=== PATIENT | female | born 1965 | race Caucasian/White ===

== ENCOUNTER 2016-09-15 11:55 | Emergency (ER) | payer BC ==
[2016-09-15 13:06] VITALS: BP 115/86
[2016-09-15] MEDS ORDERED: Acetaminophen TAB* 325 MG PO ONE (13:43)
[2016-09-15] MEDS ORDERED: Ondansetron ODT TAB* 4 MG PO ONE (13:43)
[2016-09-15] MEDS ORDERED: Acetaminophen ADULT LIQ* 650 MG/20.3 ML UDC PO ONE (14:16)
[2016-09-15] MEDS ORDERED: Acetaminophen TAB* 325 MG ONE (14:19)
--- NOTE | 2016-09-15 14:39 | UC ---
Abdominal Pain Female HPI - HPI Summary HPI Summary: vomiting on/off for about 20 hours, no fever or diarrhea-works with developmentally disabled adults - History of Current Complaint Chief Complaint: UCGI Stated Complaint: VOMITING,ACHY Time Seen by Provider: 09/15/16 14:30 Hx Obtained From: Patient Hx Last Menstrual Period: Uterine Ablation 2006 ?: No Onset/Duration: Sudden Onset, Lasting Days - 1, Still Present Timing: Constant Severity Initially: Moderate Severity Currently: Moderate Pain Intensity: 6 Pain Scale Used: 0-10 Numeric Location: Diffuse Radiates: No Character: Cramping Aggravating Factor(s): Food Alleviating Factor(s): Nothing Associated Signs and Symptoms: Positive: Decreased Appetite, Nausea, Vomiting. Negative: Constipation, Urinary Symptoms, Vaginal Bleeding, Vaginal Discharge, Diarrhea Allergies/Adverse Reactions: Allergies Allergy/AdvReac Type Severity Reaction Status Date / Time No Known Allergies Allergy Verified 12/25/15 07:30 PMH/Surg Hx/FS Hx/Imm Hx Previously Healthy: Yes - Surgical History Surgical History: Yes Surgery Procedure, Year, and Place: Uterine Ablation, 2006, [place]; Right Ankle Fracture, 1995, [facility]; T&A, ~1968, [place] - Family History Known Family History: Positive: None Family History: no cardiovascular issues in family lineage - Social History Occupation: Employed Full-time Lives: With Family Alcohol Use: None Substance Use Type: None Smoking Status (MU): Former Smoker Type: Cigarettes Amount Used/How Often: 1/5 PPD Length of Time of Smoking/Using Tobacco: 32 Years Have You Smoked in the Last Year: Yes When Did the Patient Quit Smoking/Using Tobacco: 2015 - Immunization History Most Recent Influenza Vaccination: June 2016 Review of Systems Constitutional: Fatigue Skin: Negative Eyes: Negative ENT: Negative Respiratory: Negative Cardiovascular: Negative Gastrointestinal: Abdominal Pain, Vomiting Genitourinary: Negative Motor: Negative Neurovascular: Negative Musculoskeletal: Myalgia Neurological: Negative Psychological: Negative All Other Systems Reviewed And Are Negative: Yes Physical Exam Triage Information Reviewed: Yes Appearance: No Pain Distress, Ill-Appearing - mild, Pain Distress - mild Vital Signs: Initial Vital Signs Temp 97.8 F 09/15/16 12:56 Pulse 80 09/15/16 12:56 Resp 16 09/15/16 12:56 BP 115/86 09/15/16 12:56 Pulse Ox 97 01/04/17 12:56 Vital Signs Reviewed: Yes Eye Exam: Normal Eyes: Positive: Conjunctiva Clear ENT Exam: Normal ENT: Positive: Normal ENT inspection, Hearing grossly normal, Pharynx normal, TMs normal. Negative: Nasal congestion, Nasal drainage, Trismus, Muffled/ hoarse voice Neck exam: Normal Neck: Positive: Supple, Nontender, No Lymphadenopathy Respiratory Exam: Normal Respiratory: Positive: Chest non-tender, Lungs clear, Normal breath sounds, No respiratory distress, No accessory muscle use Cardiovascular Exam: Normal Cardiovascular: Positive: RRR, No Murmur, Pulses Normal, Brisk Capillary Refill Abdominal Exam: Normal Abdomen Description: Positive: Nontender, Soft, Other: - diffuse discomfort Bowel Sounds: Positive: Present Musculoskeletal Exam: Normal Musculoskeletal: Positive: Strength Intact, ROM Intact, No Edema Neurological Exam: Normal Neurological: Positive: Alert, Muscle Tone Normal Psychological Exam: Normal Skin Exam: Normal Re-Evaluation - Re-Evaluation First Eval Change: Improved - tolerating clear liquids well after zofran, keep down tylenol as well Abd Pain Female Course/Dx - Course Course Of Treatment: clear liquids and advance diet slowly, zofran prn for nausea/vomiting no work for 2 days, re-check and follow with PCP Prn - Differential Dx/Diagnosis Differential Diagnosis: Appendicitis, Irritable Bowel Syndrome, Peptic Ulcer Disease, Renal Colic, Urinary Tract Infection Provider Diagnoses: Acute nausea and vomiting Discharge - Discharge Plan Condition: Stable Disposition: HOME Prescriptions: Ondansetron [Zofran Odt] 4 mg PO QID PRN #10 tab PRN Reason: nausea/vomting Patient Education Materials: Ondansetron (By mouth), Acute Nausea and Vomiting (ED), Viral Syndrome (ED) Forms: *Work Release Referrals: Kelby Ramirez DO [Primary Care Provider] - If Needed
== END 2016-09-15 15:23 | disposition home or self-care (01) ==
LOC: UCCORT 11:55
DX: R11.2 Nausea with vomiting, unspecified (principal); Z87.891 Personal history of nicotine dependence
CPT/HCPCS: 87502; 99212; A9270-GY; G0463

== ENCOUNTER 2017-04-11 09:13 | Emergency (ER) | payer BC, OTHER ==
--- NOTE | 2017-04-11 11:07 | UC ---
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, that person lost their footing landing on this patient, she is experiencing pain in the cervical region, left shoulder, tingling in the left arm, spasm of the thorasic spine and low back as well - History of Current Complaint Chief Complaint: UCUpperExtremity Stated Complaint: BILATERAL SHOULDER,NECK,BACK PAIN WC Time Seen by Provider: 04/11/17 10:53 Hx Obtained From: Patient Hx Last Menstrual Period: Uterine Ablation 2006 ?: No Onset/Duration: Sudden Onset, Lasting Hours Timing: Constant Severity Initially: Severe Severity Currently: Severe Back Pain: Is Diffuse Character: Throbbing, Spasmodic, Stiffness Aggravating: Movement, Bending, Walking Alleviating: Rest Associated Signs And Symptoms: Positive: Tingling - Allergies/Home Medications Allergies/Adverse Reactions: Allergies Allergy/AdvReac Type Severity Reaction Status Date / Time No Known Allergies Allergy Verified 04/11/17 09:59 PMH/Surg Hx/FS Hx/Imm Hx Previously Healthy: Yes - Surgical History Surgical History: Yes Surgery Procedure, Year, and Place: Uterine Ablation, 2006, [place]; Right Ankle Fracture, 1995, [facility]; T&A, ~1968, [place] - Family History Known Family History: Positive: None Negative: Hypertension Family History: no cardiovascular issues in family lineage - Social History Alcohol Use: None Substance Use Type: None Smoking Status (MU): Former Smoker Type: Cigarettes Amount Used/How Often: 1/5 PPD Length of Time of Smoking/Using Tobacco: 32 Years Have You Smoked in the Last Year: Yes When Did the Patient Quit Smoking/Using Tobacco: 2015 - Immunization History Most Recent Influenza Vaccination: June 2016 Review of Systems Constitutional: Negative Skin: Negative Eyes: Negative ENT: Negative Respiratory: Negative Cardiovascular: Negative Gastrointestinal: Negative Genitourinary: Negative Neurovascular: Decreased Sensation - left arm Musculoskeletal: Arthralgia, Decreased ROM, Myalgia Neurological: Negative Psychological: Negative All Other Systems Reviewed And Are Negative: Yes Physical Exam Triage Information Reviewed: Yes Appearance: Well-Appearing, Well-Nourished, Pain Distress Vital Signs: Initial Vital Signs Temp 98.7 F 04/11/17 09:54 Pulse 102 04/11/17 09:54 Resp 16 04/11/17 09:54 BP 111/75 04/11/17 09:54 Pulse Ox 100 04/11/17 09:54 Vital Signs Reviewed: Yes Eye Exam: Normal ENT Exam: Normal Dental Exam: Normal Neck exam: Normal Neck: Positive: Supple, Nontender, No Lymphadenopathy Respiratory Exam: Normal Respiratory: Positive: Chest non-tender, Lungs clear, Normal breath sounds Cardiovascular Exam: Normal Cardiovascular: Positive: No Murmur, Pulses Normal, Tachycardia Abdominal Exam: Normal Abdomen Description: Positive: Nontender, No Organomegaly, Soft Bowel Sounds: Positive: Present Musculoskeletal: Positive: No Edema, ROM Limited @ - in neck, bilteral shoulder , twisting of the trunk and lumbar flx and ext Neurological Exam: Normal Psychological Exam: Normal Skin Exam: Normal Back Pain Course/Dx - Course Course Of Treatment: hx obtained exam performed, meds reviewed, xray of C spine obtained, no herniation, worseing of the OA noted. treated for muscle strain and spasm - Differential Dx/Diagnosis Differential Diagnosis/HQI/PQRI: Fracture, Herniated Disc, Strain, Sprain Provider Diagnoses: hx of scleroderma. cervical muscle strain. shoulder pain. lumbar strain. thorasic spine strain Discharge - Discharge Plan Condition: Stable Disposition: HOME Patient Education Materials: Cervical Strain (ED) Forms: *Work Release Referrals: Kelby Ramirez DO [Primary Care Provider] - Og Leslie [Physical Therapist] - Additional Instructions: 1. use the medication as prescribed. 2. Rest, Heat and stretch as tolerated 3. I have given you a note for time off, use it to rest and stretch. 4. I have also included a PT referral, I recommend this to strengthen the back.
--- NOTE | 2017-04-11 11:19 | RAD ---
Indication: Pain radiating down the LEFT arm to the mid humerus following injury. Comparison: September 08, 2015 Technique: AP, open-mouth odontoid, and lateral views cervical spine. Report: No cervical collar in place. Straightening relative to normal cervical lordosis without facet subluxation at any level. Negative for fracture. Preserved disc spaces. Facet joint osteoarthritis most prominent at C3-C4 on the RIGHT with mild interval worsening. Unremarkable prevertebral soft tissue contours. IMPRESSION: No radiographic evidence for traumatic injury of the cervical spine. Mild worsening of facet joint osteoarthritis compared with the 2015 exam.
[2017-04-11 11:35] VITALS: BP 108/75
[2017-04-11] MEDS ORDERED: Acetaminophen TAB* 325 MG PO ONE (11:40)
== END 2017-04-11 11:46 | disposition home or self-care (01) ==
LOC: UCCORT 09:13
DX: S13.9XXA Sprain of joints and ligaments of unspecified parts of neck, initial encounter (principal); S39.012A Strain of muscle, fascia and tendon of lower back, initial encounter; S29.012A Strain of muscle and tendon of back wall of thorax, initial encounter; M34.9 Systemic sclerosis, unspecified; Z87.891 Personal history of nicotine dependence; M25.512 Pain in left shoulder; W03.XXXA Other fall on same level due to collision with another person, initial encounter; Y92.9 Unspecified place or not applicable
CPT/HCPCS: 72040; 99212; A9270-GY; G0463

== ENCOUNTER 2019-06-25 14:44 | Emergency (ER) | payer BC ==
[2019-06-25 15:39] VITALS: BP 115/68
--- NOTE | 2019-06-25 15:52 | UC ---
Respiratory Complaint HPI - HPI Summary HPI Summary: 53 yo female with a 5 day hx of severe max sinus pressure and pain L>R fatigue/lassitude see is on MTX and Xeljanz for psoriatic arthritis and scleroderma - History of Current Complaint Chief Complaint: UCGeneralIllness Stated Complaint: SORETHROAT/CONGEST Time Seen by Provider: 06/25/19 15:37 Hx Obtained From: Patient Hx Last Menstrual Period: Uterine Ablation 2006 Onset/Duration: Gradual Onset, Lasting Days Timing: Constant Severity Initially: Moderate Severity Currently: Moderate Pain Intensity: 6 Pain Scale Used: 0-10 Numeric Character: Cough: Nonproductive Aggravating Factors: Nothing Alleviating Factors: Nothing Associated Signs And Symptoms: Positive: URI, Nasal Congestion, Hoarseness, Sinus Discomfort. Negative: Dyspnea, Fever, Chills, Pleuritic Chest Pain, Wheezing, Hemoptysis, Dizziness, Calf Pain, Calf Swelling, Edema - Allergies/Home Medications Allergies/Adverse Reactions: Allergies Allergy/AdvReac Type Severity Reaction Status Date / Time No Known Allergies Allergy Verified 06/25/19 15:39 Home Medications: Home Medications Ibuprofen TAB* [Motrin TAB* 400 MG] 400 mg PO Q6H PRN 06/25/19 [History Confirmed 06/25/19] Tofacitinib Citrate [Xeljanz] 5 mg PO DAILY 06/25/19 [History Confirmed 06/25/19 ] PMH/Surg Hx/FS Hx/Imm Hx Previously Healthy: Yes - scleroderma/psoriatic arthritis Respiratory History: Bronchitis - Surgical History Surgical History: Yes Surgery Procedure, Year, and Place: Uterine Ablation, 2006, [place]; Right Ankle Fracture, [address], [facility]; T&A, ~1968, [place] - Family History Known Family History: Positive: None Negative: Cardiac Disease, Hypertension Family History: no cardiovascular issues in family lineage - Social History Alcohol Use: None Substance Use Type: None Smoking Status (MU): Former Smoker Type: Cigarettes Amount Used/How Often: 1/5 PPD Length of Time of Smoking/Using Tobacco: ~1 PPD x 18 Years Have You Smoked in the Last Year: Yes When Did the Patient Quit Smoking/Using Tobacco: 2015 - Immunization History Most Recent Influenza Vaccination: June 2016 Vaccination Up to Date: Yes Review of Systems All Other Systems Reviewed And Are Negative: Yes Constitutional: Positive: Fatigue Skin: Positive: Negative Eyes: Positive: Negative ENT: Positive: Nasal Discharge, Sinus Congestion, Sinus Pain/Tenderness Respiratory: Positive: Cough Cardiovascular: Positive: Negative Gastrointestinal: Positive: Negative Genitourinary: Positive: Negative Motor: Positive: Negative Neurovascular: Positive: Negative Musculoskeletal: Positive: Negative Neurological: Positive: Negative Psychological: Positive: Negative Physical Exam Triage Information Reviewed: Yes Appearance: Well-Appearing, No Pain Distress, Well-Nourished Vital Signs: Initial Vital Signs Temp 98.5 F 06/25/19 15:35 Pulse 79 06/25/19 15:35 Resp 16 06/25/19 15:35 BP 115/68 06/25/19 15:35 Pulse Ox 100 06/25/19 15:35 Vital Signs Reviewed: Yes Eyes: Positive: Conjunctiva Clear ENT: Positive: Hearing grossly normal, Nasal congestion, Nasal drainage, TMs normal, Hoarse voice, Sinus tenderness - L>R, Uvula midline. Negative: Tonsillar swelling, Tonsillar exudate, Trismus, Muffled voice Neck: Positive: Supple, Nontender, No Lymphadenopathy Respiratory: Positive: Lungs clear, Normal breath sounds, No respiratory distress, No accessory muscle use Cardiovascular: Positive: RRR, No Murmur Musculoskeletal: Positive: ROM Intact, No Edema Neurological: Positive: Alert Psychological Exam: Normal Skin Exam: Normal Respiratory Course/Dx - Differential Dx/Diagnosis Provider Diagnosis: Acute sinusitis with coexisting condition requiring prophylactic treatment Discharge ED - Sign-Out/Discharge Documenting (check all that apply): Patient Departure All imaging exams completed and their final reports reviewed: No Studies - Discharge Plan Condition: Stable Disposition: HOME Prescriptions: Amoxicillin PO (*) [Amoxicillin 875 MG (*)] 875 mg PO BID #14 tab Fluticasone NASAL SPRAY 50MCG* [Flonase NASAL SPRAY 50MCG*] 2 spray BOTH NARES BID #1 btl Patient Education Materials: Sinusitis (ED) Forms: *Work Release Referrals: Lois Medina PA [Primary Care Provider] - 1 Week (if not better) Additional Instructions: you will probably need to hold your Wed MTX dose discuss this with your Eyeglass Inspector frequent warm facial compresses fluids use flonase 2 sprays each nostril twice daily about 5 minutes after using neti - pot - Billing Disposition and Condition Condition: STABLE Disposition: Home
== END 2019-06-25 16:05 | disposition home or self-care (01) ==
LOC: UCCORT 14:44
DX: J01.90 Acute sinusitis, unspecified (principal); L40.50 Arthropathic psoriasis, unspecified; M34.9 Systemic sclerosis, unspecified; R53.83 Other fatigue; Z79.899 Other long term (current) drug therapy; Z87.891 Personal history of nicotine dependence
CPT/HCPCS: 99212; G0463